=== PATIENT | male | born 1980 | race Caucasian/White ===

== ENCOUNTER → 2025-08-18 14:07 | Outpatient (REF) | payer BC, SELFPAY | LOC: EMG 14:07 | PROVIDERS: ATTENDING PHYSICIAN Orthopaedic Surgery; FAMILY PHYSICIAN Internal Medicine | DX: R20.0 Anesthesia of skin (principal) | CPT/HCPCS: 95886; 95911 ==

== ENCOUNTER 2025-08-18 15:52 | Emergency (ER) | payer BC, SELFPAY ==
[2025-08-18 15:59] VITALS: BP 151/93
[2025-08-18 16:41] LABS: ALT (SGPT) 30 U/L (0-50); AST (SGOT) 29 U/L (17-59); Albumin 4.1 g/dl (3.5-5.0); Alkaline Phosphatase 54 U/L (38-126); Blood Urea Nitrogen 14 mg/dl (9-20); Calcium 9.0 mg/dl (8.4-10.2); Carbon Dioxide 30 mmol/L (22-30); Chloride 103 mmol/L (98-107); Glucose 100 mg/dl (70-99); Potassium 4.1 mmol/L (3.5-5.1); Sodium 137 mmol/L (135-145); Total Protein 6.7 g/dl (6.3-8.2); eGFR > 60.00
[2025-08-18 16:50] LABS: Hematocrit 40.1 % (39.0-52.0); Hemoglobin 13.0 g/dL (13.0-18.0); Mean Corp Hgb Conc. 32.4 g/dL (33.0-37.0); Mean Corpuscular Volume 87.7 fL (80.0-94.0); Nucleated Red Blood Cells % 0 % (-); Platelet Count 291 10^3/uL (130-400); Red Cell Dist. Width 12.8 % (11.5-14.5)
--- NOTE | 2025-08-18 20:35 | ED.GENMED ---
History of Present Illness
General
Chief Complaint: Fainting Sensation
Source: patient
Time Seen by Provider: 08/18/25 20:06
History of Present Illness
History of Present Illness:
44-year-old male presents to the emergency room complaining of feeling a bit lightheaded, nauseous and just fatigued and off. Patient began feeling this way this morning. Symptoms were there when he woke up but seem to progress throughout the day.
He has not been vomiting. He is tolerating oral intake. Patient states he has some chronic medical issues such as carpal tunnel, kidney stones and sciatica which is making it difficult for him to sleep. He wonders if all these symptoms are
related to the fact he is not sleeping adequately. Is not aware of any fever. He denies any chest pain or shortness of breath.
Phy Exam
Physical Exam
Physical Exam:
General: Awake, Alert, Oriented X3. No acute distress.
Vitals: unremarkable
Head: Atraumatic
Eyes: Pupils equal, EOMI
Throat: Airway intact, no exudates, dry mucosa
Neck: Trachea midline
Lungs: Clear and equal b/l
Heart: Regular rate, no murmurs
Abd: Soft, Nontender, No pulsatile mass
Neuro: Nonfocal
Skin: Warm, dry, no rash
Extremities: pulses equal b/l, no edema
Course
Orders/Labs/Results
Orders:
Orders
08/18/25 16:08
Complete Blood Count/With Diff Urgent
Comprehensive Metabolic Panel Urgent
TSH Reflex To Free T4 Urgent
Comment: ADD ON
08/18/25 20:34
Add On- LAB Urgent
Tests Added?: tsh reflex t4
Electrocardiogram (*1) Urgent
Reason for Study: Fatigue / Weakness
EKG- Treatment ONCE
0.9% Sodium Chloride 1000 ml [Nss] 1,000 ml IV BOLUS
08/18/25 21:14
COVID-19 Antigen Urgent
Source: Nasal Swab
Influenza A+B Rapid Molecular Urgent
MINAL Source: Nasal Swab
Specimen Description:
Abnormal Lab Results
08/18/25
16:08
RBC 4.57 L 10^6/uL
(4.70-6.10)
MCHC 32.4 L g/dL
(33.0-37.0)
MPV 10.8 H fL
(7.4-10.4)
Glucose 100 H mg/dl
(70-99)
Total Bilirubin 0.1 L mg/dl
(0.2-1.3)
08/18/25 16:08
08/18/25 16:08
Vital Signs
Initial and Last Documented VS:
Initial Vital Signs
Temp Pulse Resp BP Pulse Ox
98.3 F 64 18 151/93 95
08/18/25 15:59 08/18/25 15:59 08/18/25 15:59 08/18/25 15:59 08/18/25 15:59
Last Documented Vital Signs
Temp Pulse Resp BP Pulse Ox
98.3 F 64 18 124/80 94
08/18/25 15:59 08/18/25 15:59 08/18/25 15:59 08/18/25 22:00 08/18/25 22:15
MDM/Problems Addressed
Differential Diagnosis Includes:
Viral illness, dehydration, hypothyroidism, sleep deprivation
MDM/Problems Addressed:
COVID and flu test are negative. TSH is normal. Physical exam not suggestive of any serious pathology. Perhaps patient is feeling fatigue due to his difficulty sleeping. Recommend melatonin plus minus Benadryl or Tylenol PM.
*Pulse Oximetry
SaO2: 95
Oxygen Mode of Delivery: Room air
Patient hypoxic: no
*EKG
Interpreted by ED Provider?: Yes
Heart Rate: 57
Rate: bradycardiac
Rhythm: sinus
Fowler: normal axis
Interval: normal interval
QRS Pattern: normal QRS
Ischemia: no ischemia
*Bailiff Interpretation
Rate: bradycardiac
Interpretation: abnormal
Rhythm: sinus
*Critical Care Note
Total Time (30-74mins, 75-104mins- exclusive of procedures): Not Applicable
ED Attending Note
-
Portions of this chart may have been created with voice recognition software.� Occasional wrong word or��sound alike� substitutions may have occurred due to the inherent limitations of voice recognition software.
Discharge Plan
Departure
Patient Disposition: Home (Routine Discharge)
Date of Disposition: 08/18/25
Time of Disposition: 22:27
Patient with high blood pressure during this ER visit?: No
Condition: Good
Discharge Problem:
Fatigue, Insomnia
Instructions: Insomnia, Fatigue (DC)
Referrals:
Richard Nichole MD [Family Provider, Internal Medicine]
Activity Restrictions/Additional Instructions:
I would recommend trying melatonin and perhaps Tylenol PM to help with sleep. Follow-up with your primary care doctor.
Interventions
Interventions:
*Risk Screen - Suicide Last Done: 08/18/25 16:03
*General Assessment Last Done: 08/18/25 16:03
*Neglect/Abuse Screening Last Done: 08/18/25 16:03
*ED- Fall Risk Assessment Last Done: 08/18/25 21:20
*ED COVID-19 Vaccine History Last Done: 08/18/25 21:20
*ED Influenza Vaccine History Last Done: 08/18/25 21:20
*Nursing Disposition Last Done: 08/18/25 22:52
ED- Cardiac Assessment Last Done: 08/18/25 21:21
ED- Neurological Assessment Last Done: 08/18/25 21:21
Discharge Date and Time
Discharge Date/Time: 08/18/25 22:52
Print Language: GAMBIAN
[2025-08-18] MEDS: NSS 1000 IV (20:44)
[2025-08-18 20:49] VITALS: BP 115/80
[2025-08-18 21:00] VITALS: BP 117/78
[2025-08-18 21:46] LABS: COVID-19 Antigen Negative (Negative)
[2025-08-18 22:00] VITALS: BP 124/80
== END 2025-08-18 22:52 | disposition home or self-care (01) ==
LOC: EMR 15:52
PROVIDERS: Student in an Organized Health Care Education/Training Program; EMERGENCY PHYSICIAN Emergency Medicine; FAMILY PHYSICIAN Internal Medicine
DX: G47.00 Insomnia, unspecified (principal); R53.83 Other fatigue
CPT/HCPCS: 99283; 96360; 80053; 84443; 85025; 87502; 87811; 93005

== ENCOUNTER → 2025-09-19 17:03 | Outpatient (REF) | payer BC, SELFPAY | LOC: REG 17:03 | PROVIDERS: ATTENDING PHYSICIAN Orthopaedic Surgery; FAMILY PHYSICIAN Internal Medicine | DX: S05.50XA Penetrating wound with foreign body of unspecified eyeball, initial encounter (principal) | CPT/HCPCS: 70030 ==